=== PATIENT | male | born 1965 | race Caucasian/White ===

== ENCOUNTER 2023-12-11 09:51 | Emergency (ER) | payer SELFPAY ==
[2023-12-11] VITALS (11 sets, daily range): BP systolic 100–134; BP diastolic 60–70; PULSE 84–99; RESP 13–27; TEMP 36.3; O2SAT 97–100; BMI 32.2
[2023-12-11 10:10] LABS: Add Manual Diff / Slide Review NO; Basophils Absolute Auto 100 /uL (0-100); Basophils Percent Auto 0.3 % (0-2); Eosinophils Absolute Auto 0 /uL (0-450); Eosinophils Percent Auto 0.1 % (2-4); Hematocrit 38.8 % (41-53); Hemoglobin 12.9 g/dL (13.5-17.5); Lymphocytes Absolute Auto 1200 /uL (1100-4500); Lymphocytes Percent Auto 5.8 % (25-40); Mean Corpuscular HGB Conc 33.1 % (30-36); Mean Corpuscular Hemoglobin 28.3 PG (26-34); Mean Corpuscular Volume 85.5 fL (80-100); Monocytes Absolute Auto 1400 /uL (0-900); Monocytes Percent Auto 6.8 % (3-14); Neutrophils Absolute Auto 17800 /uL (1500-7000); Platelet Count 247 X10^3/uL (150-400); Red Blood Cell Count 4.54 X10^6/uL (4.5-5.9); Red Cell Distribution Width 13.4 % (11.6-14.8); White Blood Cell Count 20.4 X10^3/uL (4.5-11.0)
--- NOTE | 2023-12-11 10:11 | EKG_ITS ---
[address] [address] [place] [address] Test Date: 2023-12-11 Pat Name: [facility] Department: [facility] Room: Gender: Male Punch Press Operator: AURORA : 1965 Requested By: Order Number: [id number] Reading MD: Brant Lozano MD Measurements Intervals [place] Rate: 92 P: 117 [place]: 138 QRS: 196 QRSD: 78 T: 162 QT: 360 QTc: 445 Interpretive Statements Suspect arm lead reversal, interpretation assumes no reversal Normal sinus rhythm Right superior axis deviation NO PRIOR TRACING Electronically Signed On 12-11-2023 13:47:56 PDT by Brant Lozano MD
[2023-12-11 10:20] LABS: Alanine Aminotransferase 32 IU/L (<50); Albumin 3.6 g/dL (3.5-5.0); Albumin Globulin Ratio 1.1 (1.0-2.8); Alkaline Phosphatase 80 U/L (38-126); Aspartate Aminotransferase 25 IU/L (17-59); Bilirubin Total 1.1 mg/dL (0.2-1.3); Blood Urea Nitrogen 14 mg/dL (9-20); Calcium 8.8 mg/dL (8.4-10.2); Carbon Dioxide 29 mmol/L (22-32); Chloride 97 mmol/L (98-107); Estimated Glomerular Filt Rate > 60 mL/min (>60); Globulin 3.2 g/dL (1.7-4.1); Glucose 236 mg/dL (70-100); HEMOLYSIS < 15 (0-50); Lipase 93 U/L (23-300); Potassium 4.3 mmol/L (3.4-5.1); Sodium 132 mmol/L (137-145); Total Protein 6.8 g/dL (6.3-8.2)
--- NOTE | 2023-12-11 10:20 | ED.NAVMDI ---
HPI - Nausea/Vomiting/Diarrhea General Chief complaint: Nausea/Vomiting/Diarrhea Stated complaint: pancreatitis Time Seen by Provider: 12/11/23 10:09 Source: patient Mode of arrival: Ambulatory History of Present Illness HPI Narrative: Patient is a 58-year-old healthy male has a history of pancreatitis presenting today with 3 weeks of ongoing abdominal pain and epigastric pain. He reports that the 1st 2 days he would nausea vomiting but that has subsided. However over last couple of days he is feeling more and more distended and more and more pain. He had a low-grade temp of 99.9? last night. He has had significant diarrhea this morning. He denies any sort of chest pain. He denies any alcohol use states that his pancreatitis was from an unknown cause. He takes no medications does not follow-up with doctors. He reports that he has only had a Glucerna for the last 2 days unable to eat real food. Overall progressively getting worse. He did not come in earlier because they lost insurance and were worried. Related Data Previous Rx's Medication Instructions Recorded hydrocodone 5 mg-acetaminophen 325 1 tab PO Q6H PRN pain #14 tabs 12/11/23 mg tablet ondansetron 4 mg disintegrating 4 mg PO Q8H PRN nausea and 12/11/23 tablet vomiting #10 tabs Allergies Allergy/AdvReac Type Severity Reaction Status Date / Time oxycodone Allergy Unknown Verified 12/11/23 10:02 Patient History Medical History Pancreatitis Social History Smoking Status: Never smoker Smoking Status: Never smoker alcohol intake frequency: 0-2 drinks per day Substance Use Type: does not use Exam Initial Vital Signs Initial Vital Signs: Vital Signs Temperature 97.4 F L 12/11/23 09:59 Pulse Rate 99 H 12/11/23 09:59 Respiratory Rate 14 12/11/23 09:59 Blood Pressure 134/70 12/11/23 09:59 Pulse Oximetry 99 12/11/23 09:59 Oxygen Delivery Method Room Air 12/11/23 09:59 GENERAL: Alert well-appearing 58-year-old male HEENT: Head atraumatic,EOMI, pupils reactive, face symmetric, moist mucous membranes CARDIOVASCULAR: Regular rate and rhythm without murmurs, rubs or gallops. RESPIRATORY: Breath sounds equal bilaterally, no wheezes rales or rhonchi. ABDOMEN: Soft, minimally distended good bowel sounds epigastric tenderness some mild right upper quadrant tenderness EXTREMITIES: Normal range of motion, no clubbing or edema. Neurovascularly intact NEUROLOGICAL: Alert and oriented x4. SKIN: Warm, dry, no laceration, no petechiae, no rashes or lesions. Course Orders Ordered: ED Orders 12/11/23 10:00 Complete Blood Count AUTO DIFF Stat Comprehensive Metabolic Panel Stat Lactate (Lactic Acid) Stat Lipase Stat 12/11/23 10:04 EKG-12 Lead Stat 12/11/23 10:27 CT abdomen pelvis w con Stat 12/11/23 10:42 Blood Culture Stat 12/11/23 12:51 Consult to BUSINESS ANALYSIS CONSULTANT - Soliciting Freight Agent Stat 12/11/23 13:19 Consult to [facility] - Soliciting Freight Agent Stat 12/11/23 13:35 Triglycerides Stat Discontinued Medications Sodium Chloride (Normal Saline 0.9%) 1,000 mls @ 1,000 mls/hr IV BOLUS ONE Stop: 12/11/23 11:26 Last Infusion: 12/11/23 11:30 Dose: Infused Documented By: Admin: 12/11/23 10:30 Dose: 1,000 mls/hr Documented By: DEBBIE Sodium Chloride (Normal Saline 0.9%) 1,000 mls @ 125 mls/hr IV CONT APOLINAR Last Infusion: 12/11/23 14:58 Dose: Infused Documented By: Admin: 12/11/23 11:48 Dose: 125 mls/hr Documented By: DEBBIE Ketorolac Tromethamine (Ketorolac 30 Mg/Ml Vial) 15 mg IV NOW ONE Stop: 12/11/23 10:28 Last Admin: 12/11/23 10:31 Dose: 15 mg Documented By: DEBBIE Morphine Sulfate (Morphine 2 Mg/Ml Inj) 2 mg IV NOW ONE Stop: 12/11/23 13:27 Last Admin: 12/11/23 13:42 Dose: 2 mg Documented By: DONNELL Ondansetron HCl (Ondansetron 4 Mg/2 Ml Inj) 4 mg IV NOW PRN PRN Reason: Nausea And Vomiting Ondansetron HCl (Ondansetron 4 Mg Odt) 4 mg PO NOW PRN PRN Reason: Nausea And Vomiting Vital Signs Vital signs: Vital Signs - 8 hr 12/11/23 10:30 12/11/23 10:30 12/11/23 10:52 Pulse Rate 95 H Respiratory Rate 24 Blood Pressure 119/64 119/64 Pulse Oximetry 97 12/11/23 10:52 12/11/23 11:00 12/11/23 11:01 Pulse Rate 89 86 Respiratory Rate 18 20 Blood Pressure 110/63 Pulse Oximetry 98 98 12/11/23 11:01 12/11/23 11:30 12/11/23 11:30 Pulse Rate 89 88 Respiratory Rate 24 22 Blood Pressure 126/66 Pulse Oximetry 97 98 12/11/23 12:00 12/11/23 12:00 12/11/23 12:30 Pulse Rate 84 84 Respiratory Rate 27 H 23 Blood Pressure 110/61 Pulse Oximetry 98 97 12/11/23 12:30 12/11/23 13:00 12/11/23 13:00 Pulse Rate 86 Respiratory Rate 23 Blood Pressure 108/61 100/60 Pulse Oximetry 98 12/11/23 13:30 12/11/23 13:30 Pulse Rate 87 Respiratory Rate 13 Blood Pressure 112/64 Pulse Oximetry 100 MDM - Nausea/Vomiting/Diarrhea Lab Data 12/11/23 10:00 12/11/23 10:00 Labs: Lab Results 12/11/23 12/11/23 Range/Units 10:00 13:35 WBC 20.4 H (4.5-11.0) X10^3/uL RBC 4.54 (4.5-5.9) X10^6/uL Hgb 12.9 L (13.5-17.5) g/dL Hct 38.8 L (41-53) % MCV 85.5 (80-100) fL MCH 28.3 (26-34) PG MCHC 33.1 (30-36) % RDW 13.4 (11.6-14.8) % Plt Count 247 (150-400) X10^3/uL Neut % (Auto) 87.0 H (50-75) % Lymph % (Auto) 5.8 L (25-40) % [place] % (Auto) 6.8 (3-14) % Eos % (Auto) 0.1 L (2-4) % Baso % (Auto) 0.3 (0-2) % Neut # (Auto) 51404 H (1629-5224) /uL Lymph # (Auto) 1200 (8075-6992) /uL [place] # (Auto) 1400 H (0-900) /uL Eos # (Auto) 0 (0-450) /uL Baso # (Auto) 100 (0-100) /uL Sodium 132 L (137-145) mmol/L Potassium 4.3 (3.4-5.1) mmol/L Chloride 97 L (98-107) mmol/L Carbon Dioxide 29 (22-32) mmol/L BUN 14 (9-20) mg/dL Creatinine 0.61 L (0.66-1.25) mg/dL Estimated GFR > 60 (>60) mL/min BUN/Creatinine Ratio 23.0 H (6-22) Glucose 236 H (70-100) mg/dL Lactate 1.1 (0.7-2.1) mmol/L Calcium 8.8 (8.4-10.2) mg/dL Total Bilirubin 1.1 (0.2-1.3) mg/dL AST 25 (17-59) IU/L ALT 32 (<50) IU/L Alkaline Phosphatase 80 (38-126) U/L Total Protein 6.8 (6.3-8.2) g/dL Albumin 3.6 (3.5-5.0) g/dL Globulin 3.2 (1.7-4.1) g/dL Albumin/Globulin Ratio 1.1 (1.0-2.8) Triglycerides 167 H (35-150) mg/dL Lipase 93 (23-300) U/L Imaging Data CT scan - abdomen/pelvis: Radiologist's Impression: PROCEDURE: CT ABDOMEN PELVIS W CON INDICATIONS: Distention pain nausea TECHNIQUE: After the administration of intravenous contrast, axial sections acquired from the lung bases to the pubic symphysis. Coronal and sagittal reformats were performed. For radiation dose reduction, the following was used: automated exposure control, adjustment of mA and/or kV according to patient size. COMPARISON: None. FINDINGS: Image quality: Diagnostic. Lower Chest: No significant findings. ABDOMEN: Liver: No solid mass. Gallbladder: Gallbladder is distended. No gallbladder wall thickening. There are tiny calcified stones layering dependently. There is also gallbladder sludge. Biliary ducts: No biliary dilation. Pancreas: There is edematous change involving the pancreas consistent with acute pancreatitis with associated extensive calcifications present in the distal body and tail suggesting underlying chronic pancreatitis. There is inflammatory fluid extending surrounding the pancreas and extending into the periportal region. There is ill-defined fluid extending down into the right pericolic gutter. There are potentially dystrophic calcifications present in the mesentery inferior to the pancreas. Spleen: Size is within normal limits. Adrenal Glands: No adrenal nodules. Kidneys and Ureters: 2.5 cm left renal pelvic stone without obstruction. No renal masses. No hydronephrosis. Stomach and Bowel: Normal colonic caliber, without significant wall thickening. Peritoneum: Findings related to acute pancreatitis as described above. Question dystrophic calcifications in the mesentery. Ventral Wall: No significant ventral hernia. Abdominal Nodes: No retroperitoneal or mesenteric adenopathy by size criteria. Vessels: Aorta and inferior vena cava are normal in size. PELVIS: Pelvic Organs: Unremarkable. Bladder: No bladder wall thickening, accounting for underdistention. Pelvic Nodes: No enlarged lymph nodes. Miscellaneous: Small bilateral fat containing inguinal hernias. Bones: No aggressive osseous abnormality. Lumbar degenerative change. Canal stenosis at L3-L4, L4-L5 and L5-S1. IMPRESSION: 1. Extensive changes related to acute pancreatitis with underlying chronic pancreatitis involving the distal body and tail of the pancreas. 2. Distended gallbladder with small gallstones. 3. Large nonobstructing left renal pelvic stone. 4. Lumbar degenerative change with multilevel canal stenosis Comment: Consider nonemergent multiphase pancreatic MRI to further evaluate the pancreas and exclude underlying lesion. ECG Data Attestation: I personally reviewed and interpreted this ECG as follows: Prior ECG tracings: not available for review Interpretation: Sinus rhythm rate 92 NH interval 130 QRS 70 QTC 445 suspect lead reversal although took states that she is sure is no reversed patient is not having chest pain MDM Narrative Medical decision making narrative: Patient 58-year-old male with history of pancreatitis back in 2008 presenting today with abdominal pain ongoing for the last 3 weeks. He says for the last 2 days he has only been having looser it hurts every time he eats. He has no longer had any nausea or vomiting. He is having couple of says it diarrhea. [place] [address]. Normal lipase 93, lactate 1.1 creatinine 0.61 bilirubin 1.1 AST 25 ALT [address] does show acute on chronic pancreatitis, without evidence of necrosis Patient has a acute on chronic pancreatitis with leukocytosis of 20,000. He reports some fever but it sounds like 99.9. He has been afebrile here. CT does not show evidence necrotizing pancreatitis. He is tolerating fluids and a small amount of crackers. He was given pain medications here which seemed to help a little bit. Brief discussion with hospitalist regards to admission and he recommended discharge with medication. With patient and family at bedside who understand and agree. Patient reports that he is allergic to oxycodone given prescription for [place] and Zofran. He has tolerated morphine will without significant issue Discharge Plan Departure Patient Disposition: Home Clinical Impression: Acute on chronic pancreatitis Instructions: Acute Pancreatitis Activity Restrictions/Additional Instructions: *You have been diagnosed with pancreatitis *What to do: At this time increase diet as tolerated. I recommend a liquid diet if not tolerating solid food. However you may increase in advanced your solid food as your pain improves. *Continue to take medications as directed [place] 1 tablet every 6 hours if needed for severe pain Motrin 600 mg every 6 hours if needed for zbur-hw-mbigsbiy pain Zofran 4 mg every 8 hours if needed for nausea or vomiting *Follow up with your primary care provider in 2-3 days or call [phone] *Return to ER if you should have increasing pain persistent vomiting or any new, worsening or concerning symptoms CONTROLLED SUBSTANCE DISCHARGE (Narcotoic/benzodiazepine/Flexeril/Phenergan) 1. You have been prescribed narcotic medications, it does have acetaminophen/Tylenol/paracetamol in it, DO NOT TAKE MORE THAN 4,00mg in 24 hours of Tylenol. TRAMADOL DOES NOT CONTAIN TYLENOL 2. Please understand that we cannot provide further refills of narcotics, benzodiazepines or controlled substances through the ED and her pain management will need to be through your provider. 3. While on these medications you cannot drive or operate heavy machinery. 4. You cannot sign legal documents or perform any duties such as this. 5. As long as you're taking opiate pain medications he should also be taking a stool softener such as Colace, Dulcolax, MiraLAX or prune juice, to help avoid constipation. Prescriptions: New hydrocodone-acetaminophen 5-325 mg tablet 1 tab PO Q6H PRN (Reason: pain) Qty: 14 0RF ondansetron 4 mg tablet,disintegrating 4 mg PO Q8H PRN (Reason: nausea and vomiting) Qty: 10 0RF Stand Alone Forms: Patient Portal/API
--- NOTE | 2023-12-11 10:27 | DI.CT.S_ITS ---
PROCEDURE: CT ABDOMEN PELVIS W CON INDICATIONS: Distention pain nausea TECHNIQUE: After the administration of intravenous contrast, axial sections acquired from the lung bases to the pubic symphysis. Coronal and sagittal reformats were performed. For radiation dose reduction, the following was used: automated exposure control, adjustment of mA and/or kV according to patient size. COMPARISON: None. FINDINGS: Image quality: Diagnostic. Lower Chest: No significant findings. ABDOMEN: Liver: No solid mass. Gallbladder: Gallbladder is distended. No gallbladder wall thickening. There are tiny calcified stones layering dependently. There is also gallbladder sludge. Biliary ducts: No biliary dilation. Pancreas: There is edematous change involving the pancreas consistent with acute pancreatitis with associated extensive calcifications present in the distal body and tail suggesting underlying chronic pancreatitis. There is inflammatory fluid extending surrounding the pancreas and extending into the periportal region. There is ill-defined fluid extending down into the right pericolic gutter. There are potentially dystrophic calcifications present in the mesentery inferior to the pancreas. Spleen: Size is within normal limits. Adrenal Glands: No adrenal nodules. Kidneys and Ureters: 2.5 cm left renal pelvic stone without obstruction. No renal masses. No hydronephrosis. Stomach and Bowel: Normal colonic caliber, without significant wall thickening. Peritoneum: Findings related to acute pancreatitis as described above. Question dystrophic calcifications in the mesentery. Ventral Wall: No significant ventral hernia. Abdominal Nodes: No retroperitoneal or mesenteric adenopathy by size criteria. Vessels: Aorta and inferior vena cava are normal in size. PELVIS: Pelvic Organs: Unremarkable. Bladder: No bladder wall thickening, accounting for underdistention. Pelvic Nodes: No enlarged lymph nodes. Miscellaneous: Small bilateral fat containing inguinal hernias. Bones: No aggressive osseous abnormality. Lumbar degenerative change. Canal stenosis at L3-L4, L4-L5 and L5-S1. IMPRESSION: 1. Extensive changes related to acute pancreatitis with underlying chronic pancreatitis involving the distal body and tail of the pancreas. 2. Distended gallbladder with small gallstones. 3. Large nonobstructing left renal pelvic stone. 4. Lumbar degenerative change with multilevel canal stenosis Comment: Consider nonemergent multiphase pancreatic MRI to further evaluate the pancreas and exclude underlying lesion. Dictated by: Jermaine Zhu M.D. on 12/11/2023 at 11:14 Approved by: Jermaine Zhu M.D. on 12/11/2023 at 11:22
[2023-12-11] MEDS: SODIUM CHLORIDE 0.9% 1,000 ML 1000 ML IV (10:30)
[2023-12-11] MEDS: KETOROLAC 30 MG/ML VIAL 15 MG IV (10:31)
[2023-12-11 10:43] LABS: Lactate (Lactic Acid) 1.1 mmol/L (0.7-2.1)
[2023-12-11] MEDS: SODIUM CHLORIDE 0.9% 1,000 ML 125 ML IV (11:48)
--- NOTE | 2023-12-11 13:18 | PM.CALLCOV.1 ---
Call Coverage Note Note Date of Patient Contact: 12/11/23 Narrative of Care Provided: 58 M presenting with abdominal pain, possibly acute on chronic pancreatitis or recurrent pancreatitis. Unable to locate any prior history in medical record. WBC possibly elevated due to mild dehydration. No abscess or fluid collection noted on CT. Recommend UA to complete infectious evaluation, consider GI panel or C. diff testing if continued diarrhea. If patient is able to tolerate a diet, and triglycerides are <500, patient can trial management of recurrent pancreatitis at home with as needed pain and nausea relief medications. Please reach out for admission if patient unable to tolerate a diet or if insulin infusion is needed for hypertriglyceridemia.
--- NOTE | 2023-12-11 13:25 | CM.SWNOTE ---
ED DRIVER OPERATOR Assessment Note: Patient is a 58yo male, resident of [place], presented today with 3 weeks of ongoing abdominal pain and epigastric pain. DRIVER OPERATOR was consulted due to pt request due to concerns for lack of insurance coverage. DRIVER OPERATOR entered room to meet with patient, introduced self and role. Present in the room is pt's , Nicole. Pt and have endorsed they do not have insurance coverage at the time due to pt terminating at his previous job at [employer]. Pt has been sick for the past 2-3 weeks and has been avoiding medical care due to lack of insurance. Pt has been given cb care packet and pt has been able to speak with [facility], found that pt does not qualify for [employer] because of 's income. Pt and are in the process of obtaining coverage with [employer]. ED DRIVER OPERATOR walked pt to Patient Accounts to discuss deposit in case patient is admitted for suspected pancreatitis. Plan: Pt still being evaluated medically, possible admit. ED DRIVER OPERATOR on standby for any other discharge concerns. GEORGE Mccray
[2023-12-11] MEDS: MORPHINE 2 MG/ML INJ IV (13:42)
[2023-12-11 13:52] LABS: Triglycerides 167 mg/dL (35-150)
--- NOTE | 2023-12-11 16:30 | PC.NURSE ---
Noted fax from [facility] pharmacy stating that prescription for hydrocodone is on hold due to allergy. Only have oxycodone as allergy @ [facility]. Dr. Taylor aware
== END 2023-12-11 15:06 | disposition home or self-care (01) ==
PROVIDERS: Emergency Provider Emergency Medicine
DX: K85.90 Acute pancreatitis without necrosis or infection, unspecified (principal); K86.1 Other chronic pancreatitis; R11.2 Nausea with vomiting, unspecified
CPT/HCPCS: 36415; 74177; 80053; 83605; 83690; 84478; 85025; 87040; 93005; 96361; 96374; 96375; 99284; J1885; J2270; Q9967